=== PATIENT | female | born 1970 | race Caucasian/White ===

== ENCOUNTER 2023-04-02 17:54 | Emergency (ER) | payer OTHER ==
[2023-04-02 17:57] VITALS: BP 133/77; PULSE 91; RESP 18; TEMP 98.1; BMI 31.8
[2023-04-02] MEDS ORDERED: diphenhydrAMINE HCL 25 MG CAPSULE (FP) PO ONE ×2 (21:38→21:41)
[2023-04-02] MEDS ORDERED: FAMOTIDINE 20 MG TABLET PO ONE (21:38)
[2023-04-02] MEDS ORDERED: DEXAMETHASONE SOD PHOSPHATE 10 MG/1 ML VIAL PO ONE (21:38)
[2023-04-02] MEDS ORDERED: DEXAMETHASONE SOD PHOSPHATE 10 MG/1 ML VIAL ONE (21:41)
[2023-04-02] MEDS ORDERED: FAMOTIDINE 20 MG TABLET ONE (21:41)
== END 2023-04-02 21:57 | disposition home or self-care (01) ==
LOC: JERFT 17:54
DX: R21 Rash and other nonspecific skin eruption (principal); L29.9 Pruritus, unspecified; L50.0 Allergic urticaria; T78.40XA Allergy, unspecified, initial encounter
CPT/HCPCS: 99283-25; J1100